=== PATIENT | male | born 1995 | race African-American/Black ===

== ENCOUNTER 2022-02-06 13:58 | Emergency (ER) | payer OTHER, SELFPAY ==
--- NOTE | ~2022-02-06 | XR_ITS ---
EXAMINATION: XR chest 2V DATE: 02/06/2022 14:32 INDICATION: Cough and chest pain TECHNIQUE: Frontal and lateral views of the chest are obtained COMPARISON: None available FINDINGS: The lungs are free of acute opacities. No pleural effusion or pneumothorax. The cardiomedia stinal silhouette is normal. The visualized bones and soft tissues are unremarkable. IMPRESSION: 1. No acute cardiopulmonary abnormality. Reviewed, dictated and finalized at location A.
[2022-02-06 14:04] VITALS: BP 100/85; PULSE 65; RESP 16; TEMP 36.5; O2SAT 99
--- NOTE | 2022-02-06 14:05 | ECG_ITS ---
Measurements Intervals [place] Rate: 58 P: -49 KS: 121 QRS: 105 QRSD: 101 T: 57 QT: 368 QTc: 364 Interpretive Statements ECTOPIC ATRIAL BRADYCARDIA MARKED RIGHT AXIS DEVIATION [QRS AXIS > 100] NO PREVIOUS ECG AVAILABLE FOR COMPARISON Electronically Signed On 02-06-2022 14:13:17 CDT by Javon Patino M.D.
--- NOTE | 2022-02-06 14:54 | ED.URI ---
HPI - URI/Sore Throat General Chief Complaint: Upper Respiratory Infection Stated Complaint: Coughing and Chest Congestion Time Seen by Provider: 02/06/22 14:14 History of Present Illness HPI Narrative: 26-year-old male presents emergency room for evaluation of a productive cough. Patient states cough is been present for 3 days and is worse at night. Also endorses sinus congestion postnasal drip. Denies any shortness of breath or difficulty breathing. Denies any known sick contacts. Related Data Allergies Allergy/AdvReac Type Severity Reaction Status Date / Time No Known Allergies Allergy Verified 02/06/22 14:19 Review of Systems Review of Systems: CONSTITUTIONAL: Denies fever, chills, or sweats. EYES: Denies visual changes, redness, or discharge. ENT: Denies rhinorrhea, congestion, sore throat, or otalgia. CARDIOVASCULAR: Denies chest pain, palpitations, or edema. RESPIRATORY: Reports cough GASTROINTESTINAL: Denies abdominal pain, nausea, vomiting, or diarrhea. GENITOURINARY: Denies dysuria or hematuria. SKIN: Denies rash or itching. MUSCULOSKELETAL: Denies back pain, joint pain, or myalgia. NEUROLOGIC: Denies headache, numbness, dizziness, or weakness. PSYCHIATRIC: Denies anxiety or depression. Exam Narrative: GENERAL: Well-appearing, well-nourished, no physical limitations, and in no acute distress. HEAD: Normocephalic, atraumatic. EYES: Conjunctivae normal, PERRLA and EOMI. CHEST: Clear to auscultation. No respiratory distress. No wheezes rales or rhonchi. No tenderness. HEART: Regular rate and rhythm. No murmur heard. Normal peripheral pulses. EXTREMITIES: Normal range of motion. No edema. No clubbing or cyanosis SKIN: Warm, dry, no rash. No noted wounds NEURO: No focal deficits. Alert and oriented x3. MAEW. CN's II-XI intact bilaterally, normal gait PSYCH: Cooperative. Normal mood and affect. Course Vital Signs Vital signs: Vital Signs Temperature 36.5 C 02/06/22 14:04 Pulse Rate 65 02/06/22 14:04 Respiratory Rate 16 02/06/22 14:04 Blood Pressure 100/85 02/06/22 14:04 Pulse Oximetry 99 02/06/22 14:04 Oxygen Delivery Room Air 02/06/22 14:04 Temperature 36.5 C 02/06/22 14:04 Pulse Rate 65 02/06/22 14:04 Respiratory Rate 16 02/06/22 14:04 Blood Pressure 100/85 02/06/22 14:04 Pulse Oximetry 99 02/06/22 14:04 Oxygen Delivery Room Air 02/06/22 14:36 MDM - URI/Sore Throat Lab Data Labs: Lab Results 02/06/22 Range/Units 14:25 SARS-CoV-2 RNA (RT-PCR) Pending Discharge Plan Discharge Clinical Impression: Upper respiratory infection, Viral infection Patient Disposition: Home, Self-Care Condition: Stable Instructions: Antibiotic Form, Viral Syndrome (ED), Cold Symptoms (ED) Prescriptions: New pseudoephedrine HCl 30 mg tablet 30 mg PO Q4-6H PRN (Reason: nasal congestion) Qty: 30 0RF Rx Instructions: DNExceed 4 doses/24h promethazine-codeine 6.25-10 mg/5 mL syrup 5 ml PO Q6H PRN (Reason: cough) Qty: 118 0RF Follow-up/Referrals: UNKNOWN,DOCTOR [Primary Care Provider] - Time of Disposition: 14:54
[2022-02-06 15:10] LABS: SARS-CoV-2 RNA PCR Negative
== END 2022-02-06 15:11 | disposition home or self-care (01) ==
LOC: ANHED 15:03
PROVIDERS: Emergency Provider Nurse Practitioner Family
DX: B34.9 Viral infection, unspecified (principal); J06.9 Acute upper respiratory infection, unspecified; Z20.822 Contact with and (suspected) exposure to COVID-19
CPT/HCPCS: 71046; 93005; 96372; 99283; C9803; J1100; U0003; U0005

== ENCOUNTER 2022-02-21 15:58 | Emergency (ER) | payer OTHER, SELFPAY ==
--- NOTE | 2022-02-21 16:05 | ED.URI ---
HPI - URI/Sore Throat General Chief Complaint: Upper Respiratory Infection Stated Complaint: Coughing,Spitting up [place] Time Seen by Provider: 02/21/22 16:07 Source: patient, RN notes reviewed and old records reviewed Mode of arrival: ambulatory Limitations: no limitations History of Present Illness HPI Narrative: 27-year-old male presents to the [facility] with complaints of productive cough. History of asthma Was seen in the ER for the same symptoms on February 06. States that he has been using his inhaler. Has not followed up with primary care provider states that he did call and was told to come to the [facility] Patient states he needs cough medicine, states promethazine with codeine. Reviewed past medical record, has received 3 prescriptions in the last couple of months. Related Data Allergies Allergy/AdvReac Type Severity Reaction Status Date / Time No Known Allergies Allergy Verified 02/21/22 16:00 Review of Systems Review of Systems: All systems reviewed & are unremarkable except as noted in HPI and below Constitutional: Constitutional: Reports no additional constitutional complaints, Denies chills and Denies fever(s) Eyes: Eyes: Reports no additional eye complaints ENT: Reports system reviewed and no additional complaints, except as documented Cardiovascular: Cardiovascular: Reports no additional cardiovascular complaints Respiratory: Respiratory: Reports as per HPI and Reports cough Gastrointestinal: Gastrointestinal: Reports no additional gastrointestinal complaints Musculoskeletal: Musculoskeletal: Reports no additional musculoskeletal complaints Integumentary/Breasts: Skin/Breast: Reports system reviewed and no additional complaints, except as docu Neurologic: Reports system reviewed and no additional complaints, except as documented Psychiatric: Psychiatric: Reports no additional psychiatric complaints Allergic/Immunologic: Allergic/Immunologic: Reports no additional allergic/immunologic complaints PMFSH Past Medical History Medical History Asthma Comments At the time of my signature, I reviewed and agree with the nursing past medical, surgical, social, and family history. There is no relevant family history pertinent to the patient complaint. Exam Const: General: healthy appearing, no acute distress and alert Nutritional Appearance: well nourished Orientation/consciousness: patient oriented x3 Limitations: no limitations HENMT: Head: normal to inspection Ears: external ears normal, TM's normal bilaterally and EAC's normal General nose exam: Normal external nose present Face and sinus: normal facial exam Mouth: Yes Normal oral and palatal mucosa present, Yes lip normal and Yes moist mucous membranes Throat: posterior oropharynx normal and uvula midline Eyes: General: appearance normal, both eyes and all related structures Conjunctivae: conjunctivae normal Pupils: Equal, round and reactive pupils present Neck: Neck: normal visual inspection, no lymphadenopathy and no meningeal signs Chest: Chest palpation & inspection: normal inspection of the chest Resp: Effort & Inspection: normal respiratory effort and no use of accessory muscles Auscultation: clear to auscultation bilaterally, no crackles, no rales, no rhonchi and wheezes (End expiratory lower lobes) Cardio: Rate: regular rate Rhythm: regular rhythm Back/Spine/Pelvis: Cervical Spine: normal cervical lordosis Thoracic/Lumbar Spine: thoracic and lumbar spine normal to inspection Skin: General skin exam: normal color Rashes: no rashes Wounds: no wounds Neuro: General: patient oriented x3, moves all extremities, no meningeal signs and no focal motor deficits Cranial nerves: Yes Equal, round and reactive pupils present Speech: normal speech Gait exam (Neuro): Normal gait present Extrem: General: normal to inspection, full ROM and capillary refill normal Psych: Appearance
[2022-02-21 16:08] VITALS: BP 96/50; PULSE 80; RESP 18; TEMP 36.8; O2SAT 100
[2022-02-21] MEDS: predniSONE 20 MG TABLET 40 MG PO (16:19)
[2022-02-21] MEDS: ALBUTEROL SULFATE NEB 2.5 MG/3 ML INH INHALATION (16:19)
[2022-02-21] MEDS: IPRATROPIUM BR 0.02% INH SOLN 0.5 MG/2.5 ML VIAL INHALATION (16:19)
== END 2022-02-21 17:08 | disposition home or self-care (01) ==
PROVIDERS: Emergency Provider Nurse Practitioner; PCP Internal Medicine
DX: J40 Bronchitis, not specified as acute or chronic (principal); J45.909 Unspecified asthma, uncomplicated
CPT/HCPCS: 94640; 99213; G0463; J7512

== ENCOUNTER 2023-07-11 10:53 | Emergency (ER) | payer OTHER, SELFPAY ==
[2023-07-11] VITALS (15 sets, daily range): BP systolic 102–119; BP diastolic 61–90; PULSE 72–108; RESP 15–20; TEMP 37.3; O2SAT 98–100
--- NOTE | 2023-07-11 11:23 | ED.NAVMDI ---
HPI - Nausea/Vomiting/Diarrhea General Chief complaint: Nausea/Vomiting/Diarrhea Stated complaint: nausea Time Seen by Provider: 07/11/23 11:13 Source: patient Mode of arrival: ambulatory Limitations: no limitations History of Present Illness HPI Narrative: Lu is a 28-year-old male patient presenting to the clinic today with complaints of generalized abdominal cramping, nausea, vomiting, and diarrhea x2 days. Denies any fever or chills. Related Data Allergies Allergy/AdvReac Type Severity Reaction Status Date / Time No Known Allergies Allergy Verified 02/21/22 16:00 Review of Systems Review of Systems: Pertinent positives per HPI. Patient denies any fever, chills, rash, headache, visual changes, dizziness, cough, shortness of breath, chest pain, palpitations, diarrhea, constipation, or any urinary issues. [facility] Past Medical History Medical History Asthma Comments At the time of my signature, I reviewed and agree with the nursing past medical, surgical, social, and family history. There is no relevant family history pertinent to the patient complaint. Exam Narrative: General: Well-developed, well nourished, in no apparent distress Head: Normocephalic, atraumatic Eyes: Pupils equally round and reactive to light bilaterally, EOM intact, sclera and conjunctive clear, no discharge, lids normal Ears: TMs intact and clear, ear canals clear, no drainage, grossly hearing normal. Nose: Nares patent, no discharge, no inflammation, no sinus tenderness. Mouth: Oral pharynx without lesions or masses, good dentition, MMM. Neck: Supple, trachea midline, no enlargement of anterior or posterior cervical nodes, no thyroid masses or goiter palpable. Cardio: Regular rate and rhythm, s1 and s2 normal, no murmur appreciated. Resp: Clear to auscultation bilaterally, no rhonchi, rales, wheezing or rubs Abdomen: Soft, pliable, nondistended, bowel sounds present all 4 quadrants, generalized tenderness to palpation, no organomegaly, no CVAT tenderness Course Course Emergency Course: Portions of this record may have been created with voice recognition software. Vital Signs Vital signs: Vital Signs Temperature 37.3 C 07/11/23 10:55 Pulse Rate 108 H 07/11/23 10:55 Respiratory Rate 20 07/11/23 10:55 Blood Pressure 119/90 07/11/23 10:55 Pulse Oximetry 100 07/11/23 10:55 Oxygen Delivery Room Air 07/11/23 10:55 Temperature 37.3 C 07/11/23 10:55 Pulse Rate 72 07/11/23 13:40 Respiratory Rate 16 07/11/23 13:40 Blood Pressure 103/61 07/11/23 13:40 Pulse Oximetry 100 07/11/23 13:40 Oxygen Delivery Room Air 07/11/23 10:55 Vital signs reviewed MDM - Nausea/Vomiting/Diarrhea MDM Narrative Medical decision making narrative: At the time of visit patient is resting comfortably on the exam table. Patient appears to be nontoxic. Labs: CBC shows white blood cell count of 4.8, H&H is 14.9 of 45%, platelet count 268, sodium levels 134, potassium 3.9, chlorides 97, or carbon dioxide 21, glucose is 115, liver function tests are within normal limits, lipase is 88. Urine shows 2+ protein, trace of ketones, and 3-5 red blood cells without sign of infection. Medications given: 1 L of normal saline in the 4 mg of IV Zofran. Plan: Patient states he is feeling better after fluids and Zofran. Prescription for Zofran was sent to the pharmacy. I suspect patient has gastroenteritis. Supportive measures were discussed with the patient and they voiced understanding discharge instructions and agrees to treatment plan. Return precautions reviewed Differential Diagnosis Differential diagnosis: Likely traveler's diarrhea, food poisoning, gastroenteritis, drug-induced nausea and vomiting and dehydration Lab Data 07/11/23 11:36 07/11/23 11:36 Labs: Lab Results 07/11/23 07/11/23 Range/Units 11:36 12:12 WBC
[2023-07-11] MEDS: SODIUM CHLORIDE 0.9% IV 1,000 ML 999 ML IV CONT (11:34)
[2023-07-11] MEDS: ONDANSETRON INJ 4 MG/2 ML VIAL IV PUSH (11:34)
[2023-07-11 11:41] LABS: Basophils Percent Auto 0.4 % (0.2-1.2); Eosinophils Percent Auto 0.2 % (0-4.4); Hemoglobin 14.9 g/dL (14.0-18.0); Immature Granulocyte Percent A 0.2 % (0-0.5); Lymphocytes Percent Auto 27.4 % (18.3-44.2); Mean Corpuscular HGB Conc 33.1 g/dl (32-36); Mean Corpuscular Hemoglobin 28.3 pg (26-34); Mean Corpuscular Volume 85.6 fl (80-100); Mean Platelet Volume 9.3 fl (7.4-10.4); Monocytes Percent Auto 11.4 % (2.6-8.5); Neutrophils Percent Auto 60.4 % (45.5-73.1); Platelet Count Result 268 k/mm3 (150-375); Red Blood Count 5.26 M/mm3 (4.6-6.20); Red Cell Distribution Width 11.1 % (11.5-14.5); White Blood Count 4.8 K/mm3 (4.5-10.0)
[2023-07-11 11:42] LABS: Immature Granulocyte Absolute 0.01 K/mm3 (0.00-0.031); Lymphocytes Absolute Auto 1.32 K/mm3 (0.9-3.2); Monocytes Absolute Auto 0.6 K/mm3 (0.1-0.6); Neutrophils Absolute Auto 2.9 K/mm3 (1.3-6.7)
[2023-07-11 11:54] LABS: Alanine Aminotransferase 26 U/L (6-50); Alkaline Phosphatase 57 U/L (38-126); Anion Gap 16 mmol/L (8-16); Aspartate Amino Transferase 44 U/L (17-59); Bilirubin,Total 2.1 mg/dL (0.2-1.3); Blood Urea Nitrogen 16 mg/dL (9-20); Calcium 10.1 mg/dL (8.4-10.2); Carbon Dioxide 21 mmol/L (22-30); Chloride 97 mmol/L (98-107); Estimated CRCL calculation 80 ml/min; Estimated Glomerular Filt Rate > 60; Glucose 115 mg/dL (65-110); Lipase 88 U/L (23-300); Potassium 3.9 mmol/L (3.4-5.0); Sodium 134 mmol/L (137-145)
[2023-07-11 12:31] LABS: Appearance Urine Clear (Clear); Bacteria Urine None Seen /hpf; Bilirubin Urine Negative (Negative); Blood Urine Negative (Negative); Color Urine Dark Yellow (Yellow); Glucose Urine UA Negative (Negative); Hyaline Casts Urine Present /lpf; Ketones Urine Trace mg/dL (Negative); Leukocyte Esterase Ur Negative LEU/UL (Negative); Need Manual Microscopic Reviewed; Nitrate Urine Negative (Negative); Protein Urine 2+ mg/dL (Negative); Specific Grav Ur 1.027 (1.001-1.035); Squamous Epithelial Cell Urine None seen /hpf (Few); WBC Urine 0-5 /hpf; pH Urine 5.5 (5.0-9.0)
[2023-07-11 12:33] LABS: Add Urine Microscopic? YES
== END 2023-07-11 14:48 | disposition home or self-care (01) ==
PROVIDERS: Emergency Provider Nurse Practitioner Family; PCP Family Medicine
DX: K52.9 Noninfective gastroenteritis and colitis, unspecified (principal); J45.909 Unspecified asthma, uncomplicated
CPT/HCPCS: 36415; 80053; 81001; 83690; 85025; 96361; 96374; 99284; J2405; J7030

== ENCOUNTER 2024-03-03 | Emergency (ER) | payer OTHER, SELFPAY ==
--- NOTE | ~2024-03-03 | XR_ITS ---
Portable chest x-ray Comparison: 02/06/2022 Clinical History: Hematemesis Findings: There is focal haziness right lung base. Left lung clear. Cardiomediastinal silhouette is stable. Bones and soft tissues are unremarkable. Impression: Probable focal right lower lobe pneumonia. Reviewed, dictated and finalized at location . Impression: Probable focal right lower lobe pneumonia.
[2024-03-03 00:05] VITALS: BP 111/47; PULSE 108; RESP 16; TEMP 37.9; O2SAT 98
[2024-03-03 00:19] LABS: Basophils Absolute Auto 0.1 K/mm3 (0.0-0.1); Basophils Percent Auto 0.3 % (0.2-1.2); Eosinophils Absolute Auto 0.1 K/mm3 (0-0.3); Eosinophils Percent Auto 0.5 % (0-4.4); Hematocrit 33.5 % (42.0-52.0); Hemoglobin 11.5 g/dL (14.0-18.0); Immature Granulocyte Absolute 0.04 K/mm3 (0.00-0.031); Immature Granulocyte Percent A 0.3 % (0-0.5); Lymphocytes Absolute Auto 1.11 K/mm3 (0.9-3.2); Lymphocytes Percent Auto 7.1 % (18.3-44.2); Mean Corpuscular HGB Conc 34.3 g/dl (32-36); Mean Corpuscular Hemoglobin 29.5 pg (26-34); Mean Corpuscular Volume 85.9 fl (80-100); Mean Platelet Volume 9.2 fl (7.4-10.4); Monocytes Absolute Auto 0.8 K/mm3 (0.1-0.6); Monocytes Percent Auto 5.3 % (2.6-8.5); Neutrophils Absolute Auto 13.6 K/mm3 (1.3-6.7); Neutrophils Percent Auto 86.5 % (45.5-73.1); Platelet Count Result 232 k/mm3 (150-375); Red Cell Distribution Width 11.9 % (11.5-14.5); White Blood Count 15.7 K/mm3 (4.5-10.0)
[2024-03-03 00:26] LABS: Alanine Aminotransferase 13 U/L (6-50); Albumin Level 4.3 g/dL (3.5-5.1); Alkaline Phosphatase 56 U/L (38-126); Anion Gap 8 mmol/L (4-12); Aspartate Amino Transferase 23 U/L (17-59); Bilirubin,Total 1.3 mg/dL (0.2-1.3); Blood Urea Nitrogen 9 mg/dL (9-20); Calcium 9.3 mg/dL (8.4-10.2); Carbon Dioxide 26 mmol/L (22-30); Chloride 92 mmol/L (98-107); Estimated CRCL calculation 90 ml/min; Estimated Glomerular Filt Rate > 60; Glucose 102 mg/dL (65-110); Lipase 52 U/L (23-300); Sodium 126 mmol/L (137-145)
[2024-03-03 00:29] LABS: INR 1.1; Prothrombin Time 14.2 Seconds (11.1-14.7)
[2024-03-03 00:30] LABS: Partial Thromboplastin Time 30.3 Seconds (22.3-36.8)
[2024-03-03 00:36] VITALS: BP 104/67; PULSE 106; RESP 18; O2SAT 99
[2024-03-03] MEDS: LACTATED RINGERS 1,000 ML 999 ML IV CONT (00:48)
[2024-03-03] MEDS: METOCLOPRAMIDE HCL INJ 10 MG/2 ML VIAL IV PUSH (00:48)
[2024-03-03] MEDS: diphenhydrAMINE HCl INJ 50 MG/ML VIAL 25 MG IV PUSH (00:48)
[2024-03-03] MEDS: PANTOPRAZOLE SODIUM IV 40 MG VIAL 80 MG IV PUSH (00:48)
--- NOTE | 2024-03-03 01:33 | ED.GIBLEED ---
HPI - GI Bleed General Chief complaint: GI Bleed Stated complaint: Vomiting blood and lightheaded Time Seen by Provider: 03/03/24 00:29 History of Present Illness HPI Narrative: Patient states that he has been feeling sick since his birthday about a week ago, with slight fever, cough, nausea, vomiting. Last night he cannot stop throwing up and coughing and he has noticed some blood tinged emesis and sputum. Related Data Allergies Allergy/AdvReac Type Severity Reaction Status Date / Time No Known Allergies Allergy Verified 03/03/24 00:37 Review of Systems Review of Systems: All systems reviewed & are unremarkable except as noted in HPI and below PMFSH Past Medical History Medical History Asthma Exam Narrative: EXAMINATION OF ORGAN SYSTEMS/BODY AREAS: Constitutional: Vital signs per nursing GENERAL:[No acute distress, non-toxic appearing.] HEAD: Normal with no signs of head trauma. EYES: EOMI, conjunctiva normal ENT: Hearing grossly intact LUNGS: Nonlabored breathing. HEART: [Regular rate and rhythm] ABD: [Soft], [tender to palpation] EXT: Normal range of motion SKIN: [No rashes or lesions.] NEURO: [Alert and oriented x 3. No gross focal sensory or strength deficits.] PSYCH: Normal affect Course Vital Signs Vital signs: Vital Signs Temperature 100.3 F H 03/03/24 00:05 Pulse Rate 108 H 03/03/24 00:05 Respiratory Rate 16 03/03/24 00:05 Blood Pressure 111/47 L 03/03/24 00:05 Pulse Oximetry 98 03/03/24 00:05 Temperature 100.3 F H 03/03/24 00:05 Pulse Rate 89 03/03/24 02:27 Respiratory Rate 18 03/03/24 02:27 Blood Pressure 110/70 03/03/24 02:27 Pulse Oximetry 100 03/03/24 02:27 MDM - GI Bleed MDM Narrative Medical decision making narrative: Patient presents with cough worsening over the last 7-10 days, with more recent nausea, vomiting, with blood-tinged sputum and emesis today. He is have a slight fever here. I did consider possible Pricila-Miner tear, PUD/gastritis, also considered pneumonia, PE. I do also suspect a component of cannabinoid hyperemesis syndrome. He did cough up some phlegm in front of me and I can see that is clear with just a tiny deepak of blood. He states that this is what he has been coughing up and I am therefore quite reassured. Labs do show an elevated WBC, lower hemoglobin compared to his prior, and low potassium which is repleted here. D-dimer negative. He is given Reglan/Benadryl, fluids, Protonix for symptoms. On re-evaluation he states that he feels much better and is no longer nauseous. Chest x-ray on my independent interpretation does show streaky consolidation to the right lung, which is where patient was also having some pain, consistent with the imaging, so he is started on antibiotics here. I did have discussion with the patient and his friend at bedside regarding the diagnosis and plan for follow-up to GI doctor and PCP with strict return precautions. Patient agreeable to this. Lab Data 03/03/24 00:10 03/03/24 00:10 Labs: Lab Results 03/03/24 03/03/24 03/03/24 Range/Units 00:10 00:10 03:09 WBC 15.7 H (4.5-10.0) K/mm3 RBC 3.90 L (4.6-6.20) M/mm3 Hgb 11.5 L D (14.0-18.0) g/dL Hct 33.5 L (42.0-52.0) % MCV 85.9 (80-100) fl MCH 29.5 (26-34) pg MCHC 34.3 (32-36) g/dl RDW 11.9 (11.5-14.5) % Plt Count 232 (150-375) k/mm3 MPV 9.2 (7.4-10.4) fl Immature Gran % (Auto) 0.3 (0-0.5) % Neut % (Auto) 86.5 H (45.5-73.1) % Lymph % (Auto) 7.1 L (18.3-44.2) % [place] % (Auto) 5.3 (2.6-8.5) % Eos % (Auto) 0.5 (0-4.4) % Baso % (Auto) 0.3 (0.2-1.2) % Lymph # (Auto) 1.11 (0.9-3.2) K/mm3 [place] # (Auto) 0.8 H (0.1-0.6) K/mm3 Eos # (Auto) 0.1 (0-0.3) K/mm3 Baso # (Auto) 0.1 (0.0-0.1) K/mm3 Abs Immat Gran (auto) 0.04 H (0.00-0.031) K/mm3 Absolute Neuts (a
[2024-03-03] MEDS: ACETAMINOPHEN 500 MG TABLET 1000 MG PO (01:49)
[2024-03-03] MEDS: POTASSIUM CHLORIDE 20 MEQ PACKET (FOR LIQUID) 40 MEQ PO (01:50)
[2024-03-03 02:19] LABS: D Dimer < 0.27 ug/mL (<0.48)
[2024-03-03 02:27] VITALS: BP 110/70; PULSE 89; RESP 18; O2SAT 100
[2024-03-03] MEDS: DOXYCYCLINE HYCLATE 100 MG TABLET PO (03:03)
[2024-03-03 03:25] LABS: Lactic Acid Reflex 0.8 mmol/L (0.7-2.0)
[2024-03-03 03:52] LABS: Influenza A QL RT-PCR Negative (Negative); Influenza B QL RT-PCR Negative (Negative); RSV RNA, RT-PCR Negative (Negative); SARS-CoV-2 RNA PCR Negative (Negative)
== END 2024-03-03 03:50 | disposition home or self-care (01) ==
PROVIDERS: Emergency Provider Emergency Medicine; PCP Family Medicine
DX: J18.9 Pneumonia, unspecified organism (principal); K92.0 Hematemesis; J45.909 Unspecified asthma, uncomplicated
CPT/HCPCS: 36415; 71045; 80053; 83605; 83690; 85025; 85380; 85610; 85730; 86850; 86900; 86901; 87040; 87637; 96361; 96365; 96375; 99284; A9270; J0696; J1200; J2470; J2765; J7120